=== PATIENT | female | born 1980 | race Caucasian/White ===

== ENCOUNTER 2020-02-13 23:37 | Outpatient (CLI) | payer BC | END 2020-02-13 23:38 | disposition short-term general hospital (02) | LOC: EMS 23:37 | PROVIDERS: ATTEND Surgery | DX: R25.9 Unspecified abnormal involuntary movements (principal); R25.3 Fasciculation; R00.0 Tachycardia, unspecified | CPT/HCPCS: A0425; A0427 ==

== ENCOUNTER 2020-09-07 07:08 | Outpatient (CLI) | payer BC ==
[2020-09-07 07:31] LABS: ALBUMIN 4.1 g/dL (3.2-5.5); ALBUMIN/GLOBULIN RATIO 1.2 (1.0-2.2); ALKALINE PHOSPHATASE 60 IU/L (42-121); ALT ALANINE AMINOTRANSFERASE 17 IU/L (10-60); AST ASPARTATE AMINOTRANSFERASE 18 IU/L (10-42); BILIRUBIN,TOTAL 0.6 mg/dL (0.2-1.0); BUN - BLOOD UREA NITROGEN 14 mg/dL (6-20); CALCIUM 9.1 mg/dL (8.5-10.3); CARBON DIOXIDE - CO2 25 mmol/L (21-32); CHLORIDE 103 mmol/L (101-111); CHOL/HDL RATIO 3.7 (<4.4); CHOLESTEROL 177 mg/dL; CREATININE 0.9 mg/dL (0.4-1.0); GFR - MDRD 70 (>89); GLUCOSE 103 mg/dL (70-100); HDL CHOLESTEROL 48 mg/dL; LDL CHOLESTEROL,CALCULATED 104 mg/dL; LDL/HDL RATIO 2.2 (<4.4); SODIUM 137 mmol/L (135-145); TOTAL PROTEIN 7.5 g/dL (6.7-8.2); TRIGLYCERIDES 125 mg/dL; VLDL CHOLESTEROL 25 mg/dL
[2020-09-07 07:37] LABS: BASOPHILS % (AUTO) 0.4 %; EOSINOPHILS # (AUTO) 0.1 10^3/uL (0.0-0.7); EOSINOPHILS % (AUTO) 1.5 %; HCT - HEMATOCRIT 37.1 % (37.0-47.0); HGB - HEMOGLOBIN 11.3 g/dL (12.0-16.0); LYMPHOCYTES # (AUTO) 1.6 10^3/uL (1.5-3.5); LYMPHOCYTES % (AUTO) 32.8 %; MEAN CORPUSCULAR HGB CONC 30.5 g/dL (32.0-36.0); MEAN CORPUSCULAR VOLUME 85.5 fL (81.0-99.0); MEAN PLATELET VOLUME 10.2 fL (7.9-10.8); MONOCYTES # (AUTO) 0.3 10^3/uL (0.0-1.0); MONOCYTES % (AUTO) 5.4 %; NEUTROPHILS # (AUTO) 2.9 10^3/uL (1.5-6.6); NEUTROPHILS % (AUTO) 59.7 %; PLT - PLATELET COUNT 268 10^3/uL (130-450); RED BLOOD COUNT 4.34 10^6/uL (4.20-5.40); RED CELL DISTRIBUTION WIDTH 14.5 % (12.0-15.0); WHITE BLOOD COUNT 4.8 x10^3/uL (4.8-10.8)
== END 2020-09-07 07:09 | disposition home or self-care (01) ==
LOC: LAB 07:08
PROVIDERS: ATTEND Family Medicine
DX: Z00.00 Encounter for general adult medical examination without abnormal findings (principal)
CPT/HCPCS: 36415; 80053; 80061; 83721; 84443; 85025

== ENCOUNTER 2020-09-21 08:46 | Outpatient (CLI) | payer BC ==
--- NOTE | 2020-09-21 09:22 | SLEEP CARE CONSULTATION ---
Information from patient questionnaire entered by Venice Hogue. I have reviewed and concur with the information entered by Venice Hogue. This document represents the service I personally performed and the decisions made by me, Josey Garza ARNP. History of Present Illness Service Date and Time: 09/21/2020 0846 Reason for Visit: New patient Chief Complaint: reports: Unrefreshed sleep, Snoring, Excessive daytime sleepiness, Observed pauses in breathing, Fatigue, Frequent awakenings at night Date of Onset: years Usual bedtime: 8-11 pm Time it takes to fall asleep: depends Snores at night: Yes Observed to quit breathing while asleep: Yes Sleeps alone due to snoring: No Number of times waking at night: 1-2 Reasons for waking at night: reports: Bathroom. denies: Choking, Snoring Toss, Turn, or Twitch while sleeping: Yes Recalls having dreams: Yes Usually gets out of bed at: 5 am (work days), 7 am (days off) Feels refreshed in the morning: No Morning headache: Yes (2-3 times a week, pounding headache; last hours to all day) Sleepy or fatigued during the day: Yes Ever fallen asleep while driving: No Takes day naps: No Dreams during day naps: Yes Prior sleep studies: No Additional HPI information: I had the pleasure of seeing SUSANNA ELIZONDO today regarding the possibility of her having a sleep disorder. Her current complaints are snoring, observed pauses in breathing, frequent night awakenings, unrefreshed sleep, excessive daytime sleepiness and fatigue. She snores like a "freight train", stops breathing (according to her significant other) and has gasping for air at night that she doesn't remember but her SO tells her she does. She has a history of sleep apnea in her family. Her father has sleep apnea and uses a CPAP and a maternal aunt who does not treat her apnea. - Parasomnia Symptoms Ever been unable to move upon waking from sleep: No Walks in sleep: No Talks in sleep: Yes Ever acted out dreams in sleep: No Ever felt weak in the knees when startled or emotional: No Bothered by creepy, crawly, restless sensations in legs: No Problems with memory or concentration: Yes (both, mostly memory but does have concentration issues) Subjective Initial [place] Sleepiness Scale score: 11 (in 2020) Past Medical History Past Medical History: reports: Anemia, GERD. denies: Hypertension, Diabetes, Arrythmia, Anxiety, Depression Social History The patient's occupation is a [employer]. Patient is Single and lives in [place]. Have you smoked in the past 12 months: No Alcohol use: No Caffeine use: Yes Caffeine amount and frequency: 1-2 cup a day Family History Family history of sleep disordered breathing: Yes (father, aunt) Family Hx Sleep Apnea: Father: Sleep apnea - Treated, Other: Sleep apnea - Untreated Allergies and Home Medications Drug allergies reviewed: Yes (NKDA) Home medication list reviewed: Yes Allergy and home medication list: Omeprazole Probiotic will start Riboflavin for migraines Review of Systems Cardiovascular: denies: high blood pressure Gastrointestinal: reports: heartburn, nausea, diarrhea Urinary: reports: frequency Neurological: reports: headaches Psychiatric: denies: anxiety, depression Ear/Nose/Throat: reports: sinus problems, dry mouth/throat, wisdom teeth removed. denies: tonsillectomy Endocrine: reports: sluggishness, increased urination Musculoskeletal: reports: back pain Physical Exam Blood Pressure: 110/76 Cuff size: wrist Heart Rate: 87 O2 Saturation: 96 Height: 5 ft 5.5 in Weight: 266 lb Body Mass Index: 43.6 BMI Classification: Morbidly Obese Nostrils: patent to airflow Mouth and throat: narrow oropharynx Soft palate: long Hard palate: normal Uvula: long Uvula visualization: 50% Mallampati Class II Tongue: normal in size Tonsils: 1+ Chin and jaw: normal size and position Neck: normal w/o lymphadenopathy or thyromegaly Heart: regular rate and rhythm Lungs: clear bilaterally Impression and Plan 1. Suspected Obstructive Sleep Apnea-Hypopnea Syndrome, as suggested by a history of loud and irregular snoring, observed cessation of breath while asleep, gasping or choking in sleep, morning headache, frequent awakening during the night, unrefreshed sleep, cognitive impairment, and excessive daytime sleepiness. Narrow oropharynx and obesity are common predisposing factors for obstructive sleep apnea-hypopnea syndrome. I recommend proceeding to polysomnography to confirm the diagnosis and to assess severity. If the patient has significant sleep disordered breathing, a manual CPAP titration study will also be performed to find the optimal treatment pressure. I informed the patient of what the sleep studies involve and after some discussion, obtained agreement to proceed. The pathophysiology of obstructive sleep apnea-hypopnea syndrome was discussed with the patient and health risks of cardiovascular and cerebrovascular disease if not treated. 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 Patient agreed to plan. * Schedule polysomnography +- manual CPAP titration study and return in 1-2 weeks after the study to discuss result and initiate therapy. * Avoid long distance driving or driving when feeling sleepy. * Avoid alcohol, sedative and muscle relaxant around bedtime. * Attempt to lose weight. * Review instructions provided by trained office staff on how to prepare for the sleep study. * Return for follow-up after sleep study completed. Counseling Topics: Weight loss health impact Visit Type: In Office Time Spent with Patient (minutes): 30 Provider Statement: I spent 100% of the Face to Face Visit with the patient with greater than 50% spent counseling the patient and coordination of care.
[2020-09-21 09:23] VITALS: BP 110/76
== END 2020-09-21 08:47 | disposition home or self-care (01) ==
LOC: SC 08:46
PROVIDERS: ATTEND Nurse Practitioner Family
DX: G47.10 Hypersomnia, unspecified (principal); R06.81 Apnea, not elsewhere classified; G47.8 Other sleep disorders; R06.83 Snoring; R51.9 Headache, unspecified; R41.89 Other symptoms and signs involving cognitive functions and awareness; E66.01 Morbid (severe) obesity due to excess calories; Z68.41 Body mass index [BMI] 40.0-44.9, adult
CPT/HCPCS: 99203; 99212

== ENCOUNTER 2020-10-03 09:01 | Outpatient (CLI) | payer BC | END 2020-10-03 09:02 | disposition home or self-care (01) | LOC: SC 09:01 | PROVIDERS: ATTEND Nurse Practitioner Family | DX: G47.33 Obstructive sleep apnea (adult) (pediatric) (principal); R09.02 Hypoxemia | CPT/HCPCS: 95806 ==

== ENCOUNTER 2020-10-10 08:54 | Outpatient (CLI) | payer BC | END 2020-10-10 08:55 | disposition home or self-care (01) | LOC: NS 08:54 | PROVIDERS: ATTEND Family Medicine | DX: Z71.3 Dietary counseling and surveillance (principal); E66.01 Morbid (severe) obesity due to excess calories; R73.01 Impaired fasting glucose; Z68.41 Body mass index [BMI] 40.0-44.9, adult | CPT/HCPCS: 97802 ==

== ENCOUNTER 2020-10-17 09:58 | Outpatient (CLI) | payer BC ==
--- NOTE | 2020-10-17 10:37 | SLEEP CARE CONSULTATION ---
Information from patient questionnaire entered by Venice Hogue. I have reviewed and concur with the information entered by Venice Hogue. This document represents the service I personally performed and the decisions made by , Josey Garza ARNP. History of Present Illness Service Date and Time: 10/17/2020 09 Initial [place] Sleepiness Scale score: 11 (in 2020) Current [place] Sleepiness Scale score: 8 Additional HPI information: SUSANNA ELIZONDO returns for follow up and results of the recently performed home sleep study. I explained the pathophysiology behind obstructive sleep apnea. We then spent quite a bit of time discussing different treatment options. For mild obstructive sleep apnea, surgery and oral appliance are alternatives to nasal CPAP therapy but in moderate or severe cases, nasal CPAP is the most effective and reliable treatment. Because apnea is primarily in supine position, then positional management therapy could be effective. Methods discussed such as positioning with pillows, using a T-shirt with tennis balls in the back, and shown commercial products that have a pillow format on back to prevent supine sleep. I reviewed the impact of weight changes on sleep apnea and strongly recommended losing weight. [facility] patient education on Non Pap treatment pamphlets reviewed and given to patient. Patient does not drink alcohol. Patient was cautioned about risks of drowsy driving until sleepiness symptoms resolve. Sleep Study - Results Type of Sleep Study: Home sleep study Prior sleep studies: No Polysomnography/Home Sleep Study results: Physician Impression: The quality of the study is good. The length of the study is adequate (> 240 min utes). Please also see the tabulated and graphic data. 1. Obstructive Sleep Apnea-Hypopnea (ICD-10 G47.33), mild, with an AHI of 10.3 /hr and siomara SaO2 of 86%. During the study, the patient had 42 apneas (41 obstructive, 0 central, 1 mixed) and 51 hypopneas. The longest episode lasted 72.0 seconds. The respiratory events occurred almost exclusively during supine sleep (supine AHI was 12.3 and non-supine, 0.67). 2. Hypoxemia (ICD-10 R09.02), mild, with the lowest oxygen saturation of 86 % and 1.5 minutes with SaO2 under 90%. Baseline oxygen saturation was normal (Average oxygen saturation was 95%). Allergies and Home Medications Home medication list reviewed: Yes Allergy and home medication list: Iron B12 Digestive enzyme probiotics Review of Systems Review of systems same as previous: Yes (no changes) Physical Exam Heart Rate: 85 O2 Saturation: 100 Height: 5 ft 5.5 in Weight: 263 lb Body Mass Index: 43.1 BMI Classification: Morbidly Obese Impression and Plan 1. Obstructive Sleep Apnea-Hypopnea Syndrome, mild, with lowest oxygen saturation of 86%. Obviously this is the cause of the patients symptoms of unrefreshed sleep, and excessive daytime sleepiness. Positive pressure therapy could benefit gastric reflux. Since patients apnea is primarily in supine position, patient advised that she may try positional therapy and she agreed with plan. She is also advised to lose weight as this will reduce snoring and apnea. An oral appliance can also be used for snoring but often is not covered by insurance. Follow up is scheduled for one month to check effectiveness. 2. Hypoxemia, mild, with the lowest oxygen saturation of 86 % and 1.5 minutes with SaO2 under 90%. Her baseline oxygen saturation was normal with an average oxygen saturation of 95%. * Positional therapy * Attempt to lose weight. * Avoid supine sleep. * The patient is again cautioned about driving until sleepiness completely reso lves. * Return in one month for check on positional therapy. I will assess response to therapy and compliance at that time. Counseling Topics: Weight loss health impact Visit Type: In Office Time Spent with Patient (minutes): 20 Provider Statement: I spent 100% of the Face to Face Visit with the patient with greater than 50% spent counseling the patient and coordination of care.
== END 2020-10-17 09:59 | disposition home or self-care (01) ==
LOC: SC 09:58
PROVIDERS: ATTEND Nurse Practitioner Family
DX: G47.33 Obstructive sleep apnea (adult) (pediatric) (principal); E66.01 Morbid (severe) obesity due to excess calories; Z68.41 Body mass index [BMI] 40.0-44.9, adult
CPT/HCPCS: 99212; 99213

== ENCOUNTER 2020-11-14 09:55 | Outpatient (CLI) | payer BC ==
--- NOTE | 2020-11-14 10:34 | SLEEP CARE CONSULTATION ---
Information from patient questionnaire entered by Venice Hogue. I have reviewed and concur with the information entered by Venice Hogue. This document represents the service I personally performed and the decisions made by me, Josey Garza ARNP. History of Present Illness Service Date and Time: 11/14/2020 0955 Previous diagnosis: Mild, Obstructive Sleep Apnea-Hypopnea Syndrome AHI: 10.3 (in 2020) Reason for follow up: one month (positional therapy) Prior sleep studies: Yes Year and Where: 2020 - [facility] Type of Sleep Study: Home sleep study HPI additional information: SUSANNA ELIZONDO was diagnosed to have mild, AHI 10.3, obstructive sleep apnea- hypopnea syndrome and returned today for positional therapy one month follow-up. CPAP Compliance Data Compliance data discussion: She has tried to sleep on sides but she has been getting a lot of back and hip pain. She has tried to change her bed and her new bed seems to be helping with the pain. She tried pillows and tennis balls on T shirt to keep her on her side. She is going to look into a commercial positional belt. Subjective On therapy, patient: reports: sleeping better, awakening more refreshed, more rested overall, other (mouth dryness and nasal stuffiness better when sleeping on her back). denies: drowsiness while driving Initial [place] Sleepiness Scale score: 11 (in 2020) Current [place] Sleepiness Scale score: 12 Allergies and Home Medications Home medication list reviewed: Yes (no new meds) Review of Systems Review of systems same as previous: Yes (no changes) Physical Exam Heart Rate: 75 O2 Saturation: 90 Height: 5 ft 5.5 in Weight: 265 lb Weight change since last visit: 2 lb gain Body Mass Index: 43.4 BMI Classification: Morbidly Obese Impression and Plan 1. Obstructive Sleep Apnea-Hypopnea Syndrome, mild. On positional therapy, the patient has better sleep quality and is more rested overall. She has had some difficulty staying off her back with use of pillows and a T-shirt with tennis balls mainly because of having some back and hip pain. She is going to try to obtain a commercial positional belt to help her stay off her back. She has bought a new bed that in the last 2 nights has reduced her back pain. She has also woken up with a very dry mouth, especially if she is on her back from sn oring. I advised her that there are oral dryness products that can be used to reduce dryness such as Biotene products and Xylomelts. Patient to may also discuss options with her dentist. She voiced understanding. She would like to continue with the positional therapy at this time. Patient's apnea severity and rationale for treatment to reduce apnea, improve sleep quality and reduce cardiovascular and cerebrovascular events was reviewed. Patient has a history of gastric reflux. * Continue positional therapy * Attempt to lose weight * Call this office if any problems * Return for follow up in 3 months, or sooner if concerns arise Counseling Topics: Weight loss health impact Visit Type: In Office Time Spent with Patient (minutes): 17 Provider Statement: I spent 100% of the Face to Face Visit with the patient with greater than 50% spent counseling the patient and coordination of care.
== END 2020-11-14 09:56 | disposition home or self-care (01) ==
LOC: SC 09:55
PROVIDERS: ATTEND Nurse Practitioner Family
DX: G47.33 Obstructive sleep apnea (adult) (pediatric) (principal); E66.01 Morbid (severe) obesity due to excess calories; Z68.41 Body mass index [BMI] 40.0-44.9, adult
CPT/HCPCS: 99212

== ENCOUNTER 2021-01-02 14:03 | Outpatient (CLI) | payer BC ==
[2021-01-02 14:12] LABS: BASOPHILS % (AUTO) 0.4 %; EOSINOPHILS # (AUTO) 0.1 10^3/uL (0.0-0.7); EOSINOPHILS % (AUTO) 2.7 %; HGB - HEMOGLOBIN 12.4 g/dL (12.0-16.0); LYMPHOCYTES # (AUTO) 1.4 10^3/uL (1.5-3.5); LYMPHOCYTES % (AUTO) 27.9 %; MEAN CORPUSCULAR HEMOGLOBIN 29.3 pg (27.0-31.0); MEAN CORPUSCULAR HGB CONC 32.6 g/dL (32.0-36.0); MEAN CORPUSCULAR VOLUME 89.8 fL (81.0-99.0); MEAN PLATELET VOLUME 9.6 fL (7.9-10.8); MONOCYTES # (AUTO) 0.4 10^3/uL (0.0-1.0); MONOCYTES % (AUTO) 6.8 %; NEUTROPHILS # (AUTO) 3.2 10^3/uL (1.5-6.6); PLT - PLATELET COUNT 228 10^3/uL (130-450); RED BLOOD COUNT 4.23 10^6/uL (4.20-5.40); RED CELL DISTRIBUTION WIDTH 14.4 % (12.0-15.0); WHITE BLOOD COUNT 5.2 x10^3/uL (4.8-10.8)
[2021-01-02 14:47] LABS: FERRITIN 20.2 ng/mL (11.0-306.8)
== END 2021-01-02 14:04 | disposition home or self-care (01) ==
LOC: LAB 14:03
PROVIDERS: ATTEND Family Medicine
DX: D64.9 Anemia, unspecified (principal)
CPT/HCPCS: 36415; 82607; 82728; 83540; 85025

== ENCOUNTER 2021-05-01 08:21 | Outpatient (CLI) | payer BC ==
[2021-05-01 08:39] LABS: BASOPHILS % (AUTO) 0.4 %; EOSINOPHILS # (AUTO) 0.1 10^3/uL (0.0-0.7); EOSINOPHILS % (AUTO) 2.4 %; HCT - HEMATOCRIT 44.4 % (37.0-47.0); HGB - HEMOGLOBIN 14.3 g/dL (12.0-16.0); LYMPHOCYTES # (AUTO) 1.3 10^3/uL (1.5-3.5); LYMPHOCYTES % (AUTO) 26.1 %; MEAN CORPUSCULAR HGB CONC 32.2 g/dL (32.0-36.0); MEAN CORPUSCULAR VOLUME 93.3 fL (81.0-99.0); MEAN PLATELET VOLUME 9.4 fL (7.9-10.8); MONOCYTES # (AUTO) 0.4 10^3/uL (0.0-1.0); MONOCYTES % (AUTO) 8.3 %; NEUTROPHILS # (AUTO) 3.2 10^3/uL (1.5-6.6); NEUTROPHILS % (AUTO) 62.6 %; PLT - PLATELET COUNT 273 10^3/uL (130-450); RED BLOOD COUNT 4.76 10^6/uL (4.20-5.40); RED CELL DISTRIBUTION WIDTH 12.7 % (12.0-15.0); WHITE BLOOD COUNT 5.1 x10^3/uL (4.8-10.8)
[2021-05-01 08:56] LABS: ALBUMIN 4.4 g/dL (3.2-5.5); ALBUMIN/GLOBULIN RATIO 1.4 (1.0-2.2); BILIRUBIN,TOTAL 1.4 mg/dL (0.2-1.0); CALCIUM 9.2 mg/dL (8.5-10.3); CREATININE 0.7 mg/dL (0.4-1.0); TOTAL PROTEIN 7.6 g/dL (6.7-8.2)
[2021-05-01 09:16] LABS: FERRITIN 54.2 ng/mL (11.0-306.8)
[2021-05-01 12:41] LABS: ESTIMATED AVERAGE GLUCOSE 97 mg/dL (70-100)
== END 2021-05-01 08:22 | disposition home or self-care (01) ==
LOC: LAB 08:21
PROVIDERS: ATTEND Family Medicine
DX: D64.9 Anemia, unspecified (principal); R73.9 Hyperglycemia, unspecified; E53.8 Deficiency of other specified B group vitamins
CPT/HCPCS: 36415; 80053; 82607; 82728; 83036; 85025

== ENCOUNTER 2021-12-05 13:32 | Outpatient (CLI) | payer BC ==
[2021-12-05 13:44] LABS: HCT - HEMATOCRIT 39.6 % (37.0-47.0); HGB - HEMOGLOBIN 13.1 g/dL (12.0-16.0); MEAN CORPUSCULAR HGB CONC 33.1 g/dL (32.0-36.0); MEAN CORPUSCULAR VOLUME 90.6 fL (81.0-99.0); MEAN PLATELET VOLUME 9.7 fL (7.9-10.8); RED BLOOD COUNT 4.37 10^6/uL (4.20-5.40); RED CELL DISTRIBUTION WIDTH 13.3 % (12.0-15.0); WHITE BLOOD COUNT 5.9 x10^3/uL (4.8-10.8)
[2021-12-05 13:58] LABS: ALBUMIN 4.1 g/dL (3.2-5.5); ALBUMIN/GLOBULIN RATIO 1.2 (1.0-2.2); BILIRUBIN,TOTAL 0.5 mg/dL (0.2-1.0); CREATININE 0.9 mg/dL (0.4-1.0); TOTAL PROTEIN 7.5 g/dL (6.7-8.2)
== END 2021-12-05 13:33 | disposition home or self-care (01) ==
LOC: LAB 13:32
PROVIDERS: ATTEND Family Medicine
DX: D64.9 Anemia, unspecified (principal); E53.8 Deficiency of other specified B group vitamins; R73.9 Hyperglycemia, unspecified
CPT/HCPCS: 36415; 80053; 82607; 85027

== ENCOUNTER 2022-06-06 07:19 | Outpatient (CLI) | payer BC ==
[2022-06-06 07:45] LABS: HCT - HEMATOCRIT 41.9 % (37.0-47.0); HGB - HEMOGLOBIN 13.1 g/dL (12.0-16.0); MEAN CORPUSCULAR HEMOGLOBIN 28.3 pg (27.0-31.0); MEAN CORPUSCULAR HGB CONC 31.3 g/dL (32.0-36.0); MEAN CORPUSCULAR VOLUME 90.5 fL (81.0-99.0); RED BLOOD COUNT 4.63 10^6/uL (4.20-5.40); RED CELL DISTRIBUTION WIDTH 13.7 % (12.0-15.0); WHITE BLOOD COUNT 4.1 x10^3/uL (4.8-10.8)
[2022-06-06 07:53] LABS: ALBUMIN/GLOBULIN RATIO 1.1 (1.0-2.2); ALKALINE PHOSPHATASE 63 IU/L (42-121); ALT ALANINE AMINOTRANSFERASE 15 IU/L (10-60); AST ASPARTATE AMINOTRANSFERASE 16 IU/L (10-42); BILIRUBIN,TOTAL 0.8 mg/dL (0.2-1.0); BUN - BLOOD UREA NITROGEN 14 mg/dL (6-20); CALCIUM 9.1 mg/dL (8.5-10.3); CARBON DIOXIDE - CO2 27 mmol/L (21-32); CHLORIDE 104 mmol/L (101-111); CHOL/HDL RATIO 3.1 (<4.4); CHOLESTEROL 160 mg/dL; CREATININE 0.8 mg/dL (0.4-1.0); GFR - MDRD 79 (>89); GLUCOSE 104 mg/dL (70-100); HDL CHOLESTEROL 52 mg/dL; LDL CHOLESTEROL,CALCULATED 87 mg/dL; LDL/HDL RATIO 1.7 (<4.4); POTASSIUM 4.1 mmol/L (3.5-5.0); SODIUM 138 mmol/L (135-145); TOTAL PROTEIN 7.5 g/dL (6.7-8.2); TRIGLYCERIDES 106 mg/dL; VLDL CHOLESTEROL 21 mg/dL
[2022-06-06 11:24] LABS: ESTIMATED AVERAGE GLUCOSE 100 mg/dL (70-100); HEMOGLOBIN A1c% 5.1 % (4.27-6.07)
== END 2022-06-06 07:20 | disposition home or self-care (01) ==
LOC: LAB 07:19
PROVIDERS: ATTEND Family Medicine
DX: E53.8 Deficiency of other specified B group vitamins (principal); R73.9 Hyperglycemia, unspecified; D64.9 Anemia, unspecified
CPT/HCPCS: 36415; 80053; 80061; 82607; 83036; 83721; 85027

== ENCOUNTER 2023-01-14 09:48 | Outpatient (CLI) | payer BC ==
--- NOTE | 2023-01-14 10:17 | Sleep Patient Instructions ---
Sleep Center Visit Summary - Patient Visit Information Reason for Visit: Annual followup on Positional therapy for sleep apnea - Patient Instructions Instructions Attached: CPAP, CPAP Dc Additional Instructions: You are being started on CPAP therapy with pressure setting at 4-15 cmH2O. You will need to call the sleep care office to set up your follow up once you have your APAP machine and we will schedule a visit to check compliance and response to therapy at that time. You may call the office with any concerns about pressure feeling too low or too much for adjustment, if needed. You should contact DME for any questions or concerns about mask or equipment. Please call to make a follow up appointment in the sleep care office one month after obtaining CPAP. You may contact us sooner for any questions or concerns. - Clinic Information Contact: [facility] [address] [place] [address] [email or web address] T: [phone]
--- NOTE | 2023-01-14 10:23 | SLEEP CARE CONSULTATION ---
Information from patient questionnaire entered by Wanda Jarvis. I have reviewed and concur with the information entered by Wanda Jarvis. This document represents the service I personally performed and the decisions made by me, Josey Garza ARNP. History of Present Illness Service Date and Time: 01/14/2023 0948 Previous diagnosis: Mild, Obstructive Sleep Apnea-Hypopnea Syndrome AHI: 10.3 (in 2020) Reason for follow up: annual (LAST SEEN 10/2020 POSITIONAL) Prior sleep studies: No Year and Where: 2020 - [facility] Type of Sleep Study: Home sleep study HPI additional information: SUSANNA ELIZONDO was diagnosed to have mild, AHI 10.3, obstructive sleep apnea- hypopnea syndrome and returned today for positional therapy annual follow-up. Sleep Study - Results Type of Sleep Study: Home sleep study Prior sleep studies: No Year and Where: 2020 - [facility] CPAP Compliance Data Compliance data discussion: Patient states she is having a lot of difficulties trying to stay on her sides. She did try a positional belt that she obtained online but she feels it is making it difficult to sleep. She is starting to get some pain in her hips and shoulders with slight sleeping so often. She does not feel this is going to work for her. Subjective Initial Arnold Sleepiness Scale score: 11 (in 2020) Current Arnold Sleepiness Scale score: 16 (01/13/23) Allergies and Home Medications Known drug allergies: No Drug allergies reviewed: Yes Home medication list reviewed: Yes (Omeprazole) Review of Systems Review of systems same as previous: Yes (no changes) Physical Exam Vital signs obtained and entered by: WANDA Shah MA Blood Pressure: 126/74 (LEFT ARM) Cuff size: regular Heart Rate: 83 O2 Saturation: 99 Height: 5 ft 5.5 in Weight: 277 lb 9.6 oz Body Mass Index: 45.5 BMI Classification: Morbidly Obese Impression and Plan 1. Obstructive Sleep Apnea-Hypopnea Syndrome, mild. On positional therapy, the patient has had more difficulty in trying to stay on side and is being limited by pain in shoulder/arm and hips. We discussed other options for treatment like an oral appliance and CPAP therapy that do not limit supine sleep. She decided she would like to try CPAP therapy. The patient will be started on nasal autoCPAP therapy with pressure set at 4-15 cmH2O. Compliance guidelines also reviewed. A copy of compliance guidelines will be given for reference at check out. Because the apnea is more severe supine, I instructed to avoid sleeping supine using pillow positioning until able to start CPAP use. Patient's apnea severity and rationale for treatment to reduce apnea, improve sleep quality and reduce cardiovascular and cerebrovascular events was reviewed. Patient has a history of gastric reflux. 2. Obesity, unspecified. Currently patients BMI is 45.5. Obesity increases the risk of apnea and overall health risks especially cardiovascular and diabetes. Thus patient is advised to lose weight. * Start CPAP therapy with APAP pressure set at 4-15 cmH2O * Attempt to lose weight * Call this office if any problems with CPAP use or pressure * Return for follow up in one month after obtaining CPAP, or sooner if concerns arise Counseling Topics: Sleeping position, Weight loss health impact Visit Type: In Office Time Spent with Patient (minutes): 26 Provider Statement: I spent 100% of the Face to Face Visit with the patient with greater than 50% spent counseling the patient and coordination of care.
[2023-01-14 10:27] VITALS: BP 126/74
== END 2023-01-14 09:49 | disposition home or self-care (01) ==
LOC: SC 09:48
PROVIDERS: ATTEND Nurse Practitioner Family
DX: G47.33 Obstructive sleep apnea (adult) (pediatric) (principal); E66.01 Morbid (severe) obesity due to excess calories; Z68.42 Body mass index [BMI] 45.0-49.9, adult
CPT/HCPCS: 99212; 99213

== ENCOUNTER 2024-01-21 12:18 | Emergency (ER) | payer BC ==
[2024-01-21 12:31] VITALS: BP 140/87; O2SAT 100
[2024-01-21 13:01] LABS: HCT - HEMATOCRIT 40.1 % (37.0-47.0); HGB - HEMOGLOBIN 12.9 g/dL (12.0-16.0); MEAN CORPUSCULAR HEMOGLOBIN 29.1 pg (27.0-31.0); MEAN CORPUSCULAR HGB CONC 32.2 g/dL (32.0-36.0); MEAN CORPUSCULAR VOLUME 90.5 fL (81.0-99.0); MEAN PLATELET VOLUME 9.7 fL (7.9-10.8); RED BLOOD COUNT 4.43 10^6/uL (4.20-5.40); RED CELL DISTRIBUTION WIDTH 13.1 % (12.0-15.0); WHITE BLOOD COUNT 6.5 x10^3/uL (4.8-10.8)
--- NOTE | 2024-01-21 13:12 | ED Physician Documentation ---
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 She thinks a small amount may have gotten into her mouth but most of it ended up on intact skin covering the face. None in her eyes. PD PAST MEDICAL HISTORY - Past Medical History Past Medical History: Yes GI: GERD - Past Surgical History Past Surgical History: Yes General: Cholecystectomy, Hiatal hernia repair - Present Medications Home Medications: Ambulatory Orders Medication Instructions Recorded Confirmed Omeprazole See Rx Instructions .ROUTE .COMPLEX 01/14/23 03/20/23 - Allergies Allergies/Adverse Reactions: Allergies Allergy/AdvReac Type Severity Reaction Status Date / Time No Known Drug Allergies Allergy Verified 01/21/24 12:25 - Social History Does the pt smoke?: No Smoking Status: Never smoker Does the pt drink ETOH?: No Does the pt have substance abuse?: No - Immunizations Immunizations are current?: Yes - POLST Patient has POLST: No PD ED PE NORMAL - Vitals Vital signs reviewed: Yes - General General: Alert and oriented X 3, No acute distress - HEENT HEENT: Moist mucous membranes - Neck Neck: Supple, no meningeal sign - Cardiac Cardiac: RRR - Respiratory Respiratory: No respiratory distress, Clear bilaterally - Derm Derm: Warm and dry - Neuro Neuro: Alert and oriented X 3 - Psych Psych: Normal mood, Normal affect Results - Vitals Vitals: Vital Signs - 24 hr 01/21/24 12:25 Temperature 36.5 C Heart Rate 88 Respiratory 16 Rate Blood Pressure 140/87 H O2 Saturation 100 Oxygen O2 Source Room air - Labs Labs: Laboratory Tests 01/21/24 01/21/24 12:55 12:55 WBC 6.5 RBC 4.43 Hgb 12.9 Hct 40.1 MCV 90.5 MCH 29.1 MCHC 32.2 RDW 13.1 Plt Count 305 MPV 9.7 Sodium 137 Potassium 4.1 Chloride 103 Carbon Dioxide 28 Anion Gap 6.0 BUN 15 Creatinine 0.8 Estimated GFR (MDRD) 79 L Glucose 90 Calcium 10.0 Total Bilirubin 0.5 AST 14 ALT 12 Alkaline Phosphatase 74 Total Protein 7.7 Albumin 4.6 Globulin 3.1 Albumin/Globulin Ratio 1.5 PD Medical Decision Making - ED course Complexity details: considered differential, d/w patient ED course: Patient is asymptomatic. The source patient is available for testing. Source patient does not have risk factors for HIV or hep C and has no known history of these. Patient declines postexposure prophylaxis. Will follow-up with employee health for further care. This document was made in part using voice recognition software. While efforts are made to proofread this document, sound alike and grammatical errors may occur. Departure - Departure Disposition: Home, Self Care Clinical Impression: Exposure to blood Condition: Good Instructions: ED Body Fluid Exp HC Worker Comments: Please follow-up with employee health for further care. Return if you worsen. Forms: PCP List
[2024-01-21 13:30] LABS: ALBUMIN 4.6 g/dL (3.2-5.5); ALBUMIN/GLOBULIN RATIO 1.5 (1.0-2.2); BILIRUBIN,TOTAL 0.5 mg/dL (0.2-1.0); CREATININE 0.8 mg/dL (0.6-1.3); POTASSIUM 4.1 mmol/L (3.5-4.5); TOTAL PROTEIN 7.7 g/dL (6.4-8.9)
[2024-01-22 01:09] LABS: HIV SCREEN 4TH GENERATION Non Reactive (Non Reactive)
[2024-01-22 23:09] LABS: HCV AB Non Reactive (Non Reactive)
== END 2024-01-21 14:08 | disposition home or self-care (01) ==
LOC: ED 12:18
DX: Z77.21 Contact with and (suspected) exposure to potentially hazardous body fluids (principal); X58.XXXA Exposure to other specified factors, initial encounter; Y99.0 Civilian activity done for income or pay
CPT/HCPCS: 36415; 80053; 85027; 86317; 86803; 87389; 99283